=== PATIENT | male | born 1970 | race Caucasian/White ===

== ENCOUNTER 2017-04-30 09:54 | Emergency (ER) | payer BC ==
--- NOTE | 2017-04-30 10:14 | ER NURSING DOCUMENTATION ---
Nurse's Notes [facility] Name:Shun Live Age:46 yrs Sex:Male :1970 Arrival Date:04/30/2017 Time:09:54 Bed1 Private MD: Diagnosis:Amputation of Fingertip Presentation: 04/30 09:56 Acuity: MELISSA 4 rh 09:59 Presenting complaint: Patient states: PT was chopping veggies and cut off the tip of rh the right middle finger. Transition of care: Other [facility]. 09:59 Method Of Arrival: Private Vehicle Triage Assessment: 10:01 General: Appears in no apparent distress, Behavior is cooperative. Pain: Complains of rh pain in dorsal aspect of distal phalanx of right middle finger and left hand. Musculoskeletal: Circulation, motion, and sensation intact Range of motion intact in all extremities. Injury Description: Avulsion sustained to dorsal aspect of distal phalanx of right middle finger is complete was sustained 30-60 minutes ago. Historical: - Allergies: No known drug Allergies; - Home Meds: 1. None - PMHx: None; - PSHx: None; - Tetanus: > 10 years. - Ebola Screening: : Patient negative for fever greater than or equal to 101.5 degrees Fahrenheit, and additional compatible Ebola Virus Disease symptoms. - Immunization history: Flu Vaccine None. - Social history: Smoking status: Patient uses tobacco products, current every day smoker. Screenin:03 Infectious Disease Risk None. Abuse screen: Denies threats or abuse. Denies injuries rh from another. Nutritional screening: No deficits noted. Assessment: 10:03 See Triage Assessment done by same RN. rh Vital Signs: 09:50 BP 151 / 82; Pulse 78; Resp 12; Temp 98.4(O); Pulse Ox 94% on R/A; Weight 68.04 kg (R); arc Height 5 ft. 9 in. (175.26 cm) (R); Pain 2/10; 09:50 Body Mass Index 22.15 (68.04 kg, 175.26 cm) arc ED Course: 09:55 Patient arrived in ED. arc 09:56 Neeru Malik is Primary Nurse. 09:56 Triage completed. 09:58 Dmitri Ramírez MD is Attending Physician. wv 10:03 Notified ED Physician of patient's arrival and chief complaint. Dr. Ramírez notified. 10:03 Valuables Remains with patient Patient has correct armband on for positive rh identification. Call light in reach. Side rails up X 1. 10:12 Wound care to laceration located on right hand was Irrigation Normal Saline dressed arc with bacitracin band aid, Tube Gauze Patient tolerated well. Administered Medications: 10:07 Drug: Adacel 0.5 ml; {It Coordinator: Sanofi Paste[employer] ([employer]). Exp: 12/20/2018. Lot #: [id number]. } Route: IM; Site: right deltoid; 10:07 Follow up: Response: No adverse reaction Outcome: 10:07 Discharge ordered by . tisha 10:13 Discharged to Work 10:13 Condition: improved 10:13 Discharge Assessment: Patient awake, alert and oriented x 3. No cognitive and/or functional deficits noted. Patient verbalized understanding of disposition instructions. 10:13 Discharge instructions given to patient, Instructed on discharge instructions, follow up and referral plans. Demonstrated understanding of instructions. 10:13 Patient left the ED. 05/01 10:39 Discharge F/U Call: Unable to reach: no answer lp Signatures: Nakia Addison, RN RN lp Dmitri Ramírez MD MD sc Chew, Yamel, Neeru Nuñez
--- NOTE | 2017-04-30 10:14 | ER PHYSICIAN DOCUMENTATION ---
Physician Documentation [facility] Name:Shun Live Age:46 yrs Sex:Male :1970 Arrival Date:04/30/2017 Time:09:54 Bed1 Private MD: Dmitri Ang Disposition: 04/30/17 10:07 Discharged to Home/Self Care. Impression: Amputation of Fingertip. - Condition is Good. - Discharge Instructions: FINGER TIP AMPUTATION, Open Tx, Diphtheria Tetanus acellular Pertussis Vaccines - PERTUSSIS (6yr-Adult). - Medical Reconciliation form form. - Follow up: Emergency Department; When: As needed; Reason: Worsening of condition. - Problem is new. - Symptoms have improved. HPI: 04/30 10:04 This 46 yrs old Male presents to ER via Private Vehicle with complaints of sc Finger Injury. 10:04 The patient or guardian reports a laceration. The complaints affect the dorsal aspect sc of distal phalanx of right middle finger. Context: The problem was sustained at work, resulted from cut. Onset: The symptom(s)/episode began/occurred just prior to arrival. Modifying factors: the symptoms are aggravated by nothing. Associated signs and symptoms: The patient has no apparent associated signs or symptoms. Historical: - Allergies: No known drug Allergies; - Home Meds: 1. None - PMHx: None; - PSHx: None; - Tetanus: > 10 years. - Ebola Screening: : Patient negative for fever greater than or equal to 101.5 degrees Fahrenheit, and additional compatible Ebola Virus Disease symptoms. - Immunization history: Flu Vaccine None. - Social history: Smoking status: Patient uses tobacco products, current every day smoker. ROS: 10:05 Constitutional: Negative for fever, chills, and weight loss. sc Eyes: Negative for injury, pain, redness, and discharge. Skin: Negative for injury, rash, and discoloration. 10:05 Neuro: Negative for headache, weakness, numbness, tingling, and seizure. sc 10:05 MS/extremity: Positive for injury or acute deformity, Negative for decreased range of motion, deformity, ecchymosis, paresthesias. Exam: Constitutional: This is a well developed, well nourished patient who is awake, alert, and in no acute distress. Head/Face: Normocephalic, atraumatic. Eyes: Pupils equal round and reactive to light, extra-ocular motions intact. Lids and lashes normal. Conjunctiva and sclera are non-icteric and not injected. Cornea within normal limits. Periorbital areas with no swelling, redness, or edema. 10:05 Neuro: Awake and alert, GCS 15, oriented to person, place, time, and situation. sc Cranial nerves II-XII grossly intact. Motor strength 5/5 in all extremities. Sensory grossly intact. Cerebellar exam normal. Normal gait. 10:05 Musculoskeletal/extremity: Extremities: grossly normal except: laceration, avulsed tip including edge of fingernail, no bleeding now, nonsuturable. 10:08 Skin: Exam negative for acute changes. sc Vital Signs: 09:50 BP 151 / 82; Pulse 78; Resp 12; Temp 98.4(O); Pulse Ox 94% on R/A; Weight 68.04 kg (R); arc Height 5 ft. 9 in. (175.26 cm) (R); Pain 2/10; 09:50 Body Mass Index 22.15 (68.04 kg, 175.26 cm) arc MDM: 09:58 Patient medically screened. sc 10:06 Differential diagnosis: fingertip avulsion. Data reviewed: vital signs, nurses notes, sc and as a result, I will discharge patient. Counseling: I had a detailed discussion with the patient and/or guardian regarding: the historical points, exam findings, and any diagnostic results supporting the discharge/admit diagnosis, to return to the emergency department if symptoms worsen or persist or if there are any questions or concerns that arise at home. 04/30 10:00 Order name: Wound Care; Complete Time: 10:07 ct Dispensed Medications: 10:07 Drug: Adacel 0.5 ml; {Transcription Specialist: Sanofi Pasteur ([employer]). Exp: 12/20/2018. Lot #: [id number]. } Route: IM; Site: right deltoid; 10:07 Follow up: Response: No adverse reaction Signatures: Dmitri Ramírez MD MD ct Neeru Malik
[2017-04-30] MEDS ORDERED: DIPH,PERTUSS(ACELL),TET VAC/PF 0.5 ML VIAL IM ONE (10:19)
== END 2017-04-30 10:14 | disposition home or self-care (01) ==
LOC: ER 09:54
DX: S68.622A Partial traumatic transphalangeal amputation of right middle finger, initial encounter (principal); W26.0XXA Contact with knife, initial encounter; Y92.511 Restaurant or cafe as the place of occurrence of the external cause; Y93.G1 Activity, food preparation and clean up; Y99.0 Civilian activity done for income or pay; Z23 Encounter for immunization
CPT/HCPCS: 90471; 99283